=== PATIENT | male | born 1960 | race Caucasian/White ===

== ENCOUNTER 2016-08-31 22:52 | Emergency (ER) | payer BC ==
--- NOTE | ~2016-08-31 | ER ---
PATIENT'S NAME: ARIC HARTMANN [facility] AGE: 56 Y [address] ROOM: [place] [address] LOCATION: ED ADMIT DATE: 08/31/2016 ER/Outpatient Report DISCHARGE DATE: 08/31/2016 FAMILY PHYSICIAN: Jw Luo MD ATTENDING PHYSICIAN: Pam Trejo Time of Arrival: 2252. Time Seen: 2309. IDENTIFICATION: 56-year-old male. CHIEF COMPLAINT: Right middle finger infection. HISTORY OF PRESENT ILLNESS: The patient is a 56-year-old male, who has a right third finger paronychia that was diagnosed in the clinic by Dr. Broosk today, treated with Bactrim DS. The patient has taken two antibiotic tablets, but continues to have pain and would like to have this drained. 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 He is left-handed. No other current problems or concerns. No fever or chills. PAST MEDICAL HISTORY: ALLERGIES: NO KNOWN DRUG ALLERGIES. CURRENT MEDICATIONS: 1. Cymbalta 60 mg daily. 2. Aspirin 81 mg daily. 3. Bactrim DS one tab b.i.d. prescribed today and he has had two doses. MEDICAL PROBLEMS: Depression, previous CVA with minimal left-sided residual. PRIOR SURGERIES: Hernia repair x2. July filter placement. SOCIAL HISTORY: The patient lives here in [place]. He works at [employer]. Tobacco use, denies. Alcohol use, occasional. Drug use, denies. REVIEW OF SYSTEMS: All systems reviewed and negative other than what is noted in the HPI. PATIENT'S NAME: ARIC HARTMANN [facility] AGE: 56 Y [address] ROOM: [place] [address] LOCATION: ED ADMIT DATE: 08/31/2016 ER/Outpatient Report DISCHARGE DATE: 08/31/2016 FAMILY PHYSICIAN: Jw Luo MD ATTENDING PHYSICIAN: Pam Trejo PHYSICAL EXAMINATION: VITAL SIGNS: Height 62 inches. Weight 104.4 kg. Blood pressure 127/87, pulse 84, respirations 16, temperature 97.8, and saturations 95%. GENERAL: A 56-year-old male, who appears somewhat anxious in no acute distress. HEENT: Unremarkable. LUNGS: Clear to auscultation. HEART: Regular rate and rhythm. NEUROLOGIC: The patient is alert and oriented. No focal deficit. Right third finger on the ulnar aspect has paronychia with some purulence along the nail. He would like to have this drained. The procedure was discussed. The area was anesthetized in a sterile fashion. 1% lidocaine without epinephrine was used for local anesthesia. A stab incision with an 11 blade with drainage of the purulence. The patient tolerated the procedure well and no complications. IMPRESSION: Right third finger paronychia. PLAN: Tylenol or Advil for pain. Warm water soaks 2-3 times daily. Continue the Bactrim as directed. Follow up with Dr. Luo in 2-3 days. Follow up sooner if any problems or concerns. The patient understands and agrees, and all questions have been answered. PAM TREJO MD CAR/modl /[id number] d: 09/01/16 0057 t: 09/03/16 07, OUTPATIENT REPORT
== END 2016-08-31 23:32 | disposition disaster alternative care site (69) ==
LOC: GMED 22:52
PROC: 0H9FXZZ Drainage of Right Hand Skin, External Approach (ICD-10-PCS; principal; 2016-08-31)
DX: L03.011 Cellulitis of right finger (principal); F32.9 Major depressive disorder, single episode, unspecified; F17.200 Nicotine dependence, unspecified, uncomplicated; Z98.890 Other specified postprocedural states; Z79.899 Other long term (current) drug therapy; Z79.82 Long term (current) use of aspirin